=== PATIENT | male | born 1990 | race Caucasian/White ===

== ENCOUNTER 2021-10-11 02:25 | Inpatient (IN) | payer OTHER ==
[~2021-10-11] VITALS: Ht 188 cm; Wt 116.0 kg
[2021-10-11] MEDS ORDERED: ASPIRIN 81MG TABLET PO ONE (03:45)
[2021-10-11 04:07] LABS: BASOPHILS % 0.5 % (0.0-2.0); EOSINOPHILS % 1.8 % (0.0-5.0); HEMATOCRIT. 43.2 % (42.0-52.0); HEMOGLOBIN. 14.9 g/dL (14.0-18.0); MEAN CORPUSCULAR HEMOGLOBIN 28.7 pg (28.0-32.0); MEAN CORPUSCULAR VOLUME 83.1 fL (80.0-94.0); MEAN PLATELET VOLUME 8.2 fl (7.4-10.4); MONOCYTES % 9.7 % (2.0-8.0); PLATELET 273 x1000/uL (130-400); RED BLOOD CELL COUNT 5.19 mill/uL (4.7-6.1); RED CELL DISTRIBUTION WIDTH 13.8 % (11.6-14.6)
[2021-10-11 04:14] LABS: CHLORIDE 107 mEq/L (98-107)
[2021-10-11 07:21] VITALS: BP 148/80
[2021-10-11] MEDS ORDERED: ENOXAPARIN 40MG/0.4ML SYR SUBCUT SCH (07:30)
[2021-10-11] MEDS ORDERED: TRAMADOL 50MG TABLET PO PRN (07:30)
[2021-10-11] MEDS ORDERED: CLONIDINE 0.1MG TABLET PO PRN (07:30)
[2021-10-11] MEDS ORDERED: NITROGLYCERIN 0.4MG TABLET SL SL PRN (07:30)
[2021-10-11] MEDS ORDERED: GUAIFENESIN 200MG/10ML SUGAR FREE UDC PO PRN (07:30)
[2021-10-11] MEDS ORDERED: IPRATROPIUM/ALBUTEROL 0.5-3(2.5)MG/3ML NEB NEB PRN (07:30)
[2021-10-11] MEDS ORDERED: ONDANSETRON HCL 4MG/2ML INJ IV PRN (07:30)
[2021-10-11] MEDS ORDERED: ACETAMINOPHEN 325MG TABLET PO PRN ×2 (07:30)
[2021-10-11] MEDS ORDERED: DOCUSATE SODIUM 100MG CAPSULE PO PRN (07:30)
[2021-10-11] MEDS ORDERED: MAGNESIUM/ALUMINUM HYDROXIDE/SIMETHICONE 30ML UDC PO PRN (07:30)
[2021-10-11] MEDS ORDERED: KETOROLAC 15MG/ML VIAL IV PRN (07:30)
[2021-10-11] MEDS ORDERED: NALOXONE HCL 0.4MG/ML VIAL IV PRN (08:00)
[2021-10-11 08:03] LABS: ETHANOL BLOOD < 10 mg/dL; HDL CHOLESTEROL 27 mg/dL (40-59); LDL CHOLESTEROL 131 mg/dL (5-100)
[2021-10-11 08:26] LABS: VITAMIN B12 SERUM 313 pg/mL (211-911)
[2021-10-11] MEDS ORDERED: ASPIRIN 325MG EC TABLET PO SCH (09:00)
[2021-10-11] MEDS ORDERED: METOPROLOL TARTRATE 25MG TABLET PO SCH (09:00)
[2021-10-11] MEDS ORDERED: FAMOTIDINE 20MG TABLET PO SCH (09:00)
[2021-10-11] MEDS ORDERED: ENOXAPARIN 30MG/0.3ML SYR SUBCUT SCH (09:00)
[2021-10-11] MEDS ORDERED: ZOLPIDEM TARTRATE 5MG TABLET PO PRN (21:00)
== END 2021-10-11 09:38 | disposition left against medical advice (07) | DRG 206 ==
LOC: ER 02:25 → MICUSO 08:05
PROVIDERS: ADMIT Internal Medicine; ATTEND Internal Medicine
DX: M94.0 Chondrocostal junction syndrome [Tietze] (principal); I24.9 Acute ischemic heart disease, unspecified; E78.1 Pure hyperglyceridemia; E78.5 Hyperlipidemia, unspecified; E78.00 Pure hypercholesterolemia, unspecified; E66.9 Obesity, unspecified; F17.210 Nicotine dependence, cigarettes, uncomplicated; Z53.29 Procedure and treatment not carried out because of patient's decision for other reasons; I10 Essential (primary) hypertension; Z86.73 Personal history of transient ischemic attack (TIA), and cerebral infarction without residual deficits; Z90.49 Acquired absence of other specified parts of digestive tract; Z68.32 Body mass index [BMI] 32.0-32.9, adult
CPT/HCPCS: 36415; 71045; 80053; 80061; 80320; 82607; 83036; 83880; 84443; 84484; 85025; 93005; 93970; 99285; G0480